=== PATIENT | male | born 1970 | race Caucasian/White ===

== ENCOUNTER 2024-06-25 17:42 | Emergency (ER) | payer OTHER ==
[~2024-06-25] VITALS: Ht 177.8 cm; Wt 110.0 kg
[2024-06-25] MEDS: niCARdipine IV 40 MG in IV 1 EA IV SCH (18:38)
[2024-06-25 18:49] LABS: BASO # 0.1 10^3/uL (0.0-0.2); BASO % 0.6 % (0.0-1.0); EOS # 0.1 10^3/uL (0.0-0.5); HEMATOCRIT 39.8 % (42.0-52.0); HEMOGLOBIN 13.8 g/dl (13.5-17.5); LYMPH # 1.8 10^3/uL (1.5-5.0); LYMPH % 18.4 % (24.0-44.0); MEAN CORPUSCULAR HEMOGLOBIN 30.4 pg (27.0-33.0); MEAN CORPUSCULAR HGB CONC 34.7 g/dl (32.0-36.5); MEAN CORPUSCULAR VOLUME 87.7 fl (80.0-96.0); MONO # 0.7 10^3/uL (0.0-0.8); MONO % 7.3 % (2.0-8.0); NEUTROPHILS # 6.9 10^3/uL (1.5-8.5); NEUTROPHILS % 72.4 % (36.0-66.0); PLATELET COUNT, AUTOMATED 230 10^3/uL (150-450); RED BLOOD COUNT 4.54 10^6/uL (4.30-6.10); WHITE BLOOD COUNT 9.6 10^3/uL (4.0-10.0)
[2024-06-25 19:02] LABS: INR 0.96; PARTIAL THROMBOPLASTIN TIME 26.7 SECONDS (24.8-34.2); PROTHROMBIN TIME 13.1 SECONDS (12.5-14.5)
[2024-06-25 19:06] LABS: CALCIUM LEVEL 10.2 MG/DL (8.5-10.1); CREATININE FOR GFR 1.53 MG/DL (0.70-1.30); GLOMERULAR FILTRATION RATE 51.1 (>56)
[2024-06-25] MEDS: KCL 10MEQ/100ML SWI (KRUN) 10 MEQ in IV 1 EA IV ONE (19:20)
[2024-06-25 19:31] VITALS: BP 193/94; TEMP 97
[2024-06-25 19:46] VITALS: O2SAT 96
== END 2024-06-25 19:58 | disposition short-term general hospital (02) ==
LOC: M ED 17:42
DX: I62.9 Nontraumatic intracranial hemorrhage, unspecified (principal); I16.1 Hypertensive emergency; F17.200 Nicotine dependence, unspecified, uncomplicated

== ENCOUNTER → 2024-07-09 | Outpatient (REF) | payer OTHER | LOC: M LAB REF 12:19 | PROVIDERS: ATTEND Nurse Practitioner Adult Health | DX: I10 Essential (primary) hypertension (principal); H53.452 Other localized visual field defect, left eye ==

== ENCOUNTER → 2024-07-27 | Outpatient (CLI) | payer OTHER ==
[~2024-07-27] MED LIST: ISOVUE-370 76% 100ML VIAL As Ordered ONE
== END ==
LOC: M RAD 10:10
PROVIDERS: ATTEND Nurse Practitioner Adult Health
DX: I10 Essential (primary) hypertension (principal); D35.02 Benign neoplasm of left adrenal gland
CPT/HCPCS: 74170; Q9967

== ENCOUNTER → 2024-08-08 | Outpatient (REF) | payer OTHER ==
[2024-08-08 18:36] LABS: BLOOD UREA NITROGEN 16 MG/DL (9-23); CALCIUM LEVEL 9.5 MG/DL (8.5-10.1); CARBON DIOXIDE LEVEL 33 MMOL/L (20-31); CHLORIDE LEVEL 104 MMOL/L (98-107); CREATININE FOR GFR 1.21 MG/DL (0.70-1.30); GLOMERULAR FILTRATION RATE > 60.0 (>56); GLUCOSE, FASTING 92 MG/DL (60-100); POTASSIUM SERUM 3.6 MMOL/L (3.5-5.1); SODIUM LEVEL 145 MMOL/L (136-145)
== END ==
LOC: M LABDRWAD 17:33
PROVIDERS: ATTEND Nurse Practitioner Adult Health
DX: I10 Essential (primary) hypertension (principal); E87.6 Hypokalemia

== ENCOUNTER → 2024-08-15 | Outpatient (REF) | payer OTHER | LOC: M LAB REF 14:37 | PROVIDERS: ATTEND Nurse Practitioner Adult Health | DX: I10 Essential (primary) hypertension (principal); I69.228 Other speech and language deficits following other nontraumatic intracranial hemorrhage; H53.452 Other localized visual field defect, left eye ==

== ENCOUNTER → 2024-08-17 | Outpatient (REF) | payer OTHER ==
[2024-08-17 18:07] LABS: BLOOD UREA NITROGEN 23 MG/DL (9-23); CALCIUM LEVEL 9.6 MG/DL (8.5-10.1); CARBON DIOXIDE LEVEL 35 MMOL/L (20-31); CHLORIDE LEVEL 103 MMOL/L (98-107); CREATININE FOR GFR 1.32 MG/DL (0.70-1.30); GLOMERULAR FILTRATION RATE > 60.0 (>56); GLUCOSE, FASTING 77 MG/DL (60-100); SODIUM LEVEL 147 MMOL/L (136-145)
== END ==
LOC: M LABDRWAD 16:59
PROVIDERS: ATTEND Nurse Practitioner Adult Health
DX: I10 Essential (primary) hypertension (principal); I62.9 Nontraumatic intracranial hemorrhage, unspecified; E87.6 Hypokalemia

== ENCOUNTER → 2024-08-20 | Outpatient (CLI) | payer OTHER ==
[2024-08-20 15:06] LABS: ALBUMIN 4.3 G/DL (3.2-5.2); BILIRUBIN,TOTAL 0.5 MG/DL (0.3-1.2); CALCIUM LEVEL 9.8 MG/DL (8.5-10.1); CREATININE FOR GFR 1.44 MG/DL (0.70-1.30); GLOMERULAR FILTRATION RATE 54.8 (>56); POTASSIUM SERUM 4.2 MMOL/L (3.5-5.1)
== END ==
LOC: M ADAMS 09:41
PROVIDERS: ATTEND Surgery Surgical Oncology
DX: E27.8 Other specified disorders of adrenal gland (principal)